=== PATIENT | female | born 1945 | race Caucasian/White ===

== ENCOUNTER 2024-07-10 15:11 | Emergency (ER) | payer MEDICARE, OTHER, SELFPAY ==
[2024-07-10 15:15] VITALS: BP 192/86; PULSE 63; RESP 18; TEMP 36.4; O2SAT 99; BMI 19.4
--- NOTE | 2024-07-10 15:24 | DI.RAD.S_ITS ---
PROCEDURE: XR TIBIA FUBULA RT 2V INDICATIONS: injury 07/01, swelling/bruised TECHNIQUE: 2 views of the tibia and fibula were acquired. COMPARISON: None. FINDINGS: Bones: No fractures or dislocations. No suspicious bony lesions. Soft tissues: Soft tissue swelling over anterior aspect of proximal tibial shaft is seen. No suspicious soft tissue calcifications or masses. IMPRESSION: No acute right lower leg fracture or dislocation. Soft tissue swelling over anterior aspect of proximal lower leg. Dictated by: Vitaly Mancuso M.D. on 07/10/2024 at 15:57 Approved by: Vitaly Mancuso M.D. on 07/10/2024 at 15:57
--- NOTE | 2024-07-10 15:26 | DI.US.S_ITS ---
PROCEDURE: US PERIPH VENOUS LOW EXTREM RT INDICATIONS: r/o dvt, recent injury/swelling/bruising TECHNIQUE: Real-time imaging, as well as color and pulse Doppler interrogation, were performed of the lower extremity deep veins from the inguinal ligament to the popliteal fossa, with documentation of the visualized calf veins. COMPARISON: None. FINDINGS: The common femoral, femoral, popliteal, and the visualized calf veins are normally compressible, and free of intraluminal thrombus. Color and pulse Doppler demonstrate normal phasic intraluminal flow. There is normal augmentation response to distal compression maneuver. Complex fluid collection is noted in anterior right lower leg soft tissue with through acoustic enhancement and low level internal echoes measures up to 6.5 x 1.5 x 3.4 cm in size. IMPRESSION: 1. No evidence of DVT in visualized right lower extremity veins. 2. Likely organizing hematoma in anterior right proximal lower leg soft tissue measures 6.5 x 1.5 x 3.4 cm in size. Dictated by: Vitaly Mancuso M.D. on 07/10/2024 at 16:53 Approved by: Vitaly Mancuso M.D. on 07/10/2024 at 16:55
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
== END 2024-07-10 18:36 | disposition home or self-care (01) ==
PROVIDERS: Emergency Provider Physician Assistant
DX: S80.11XA Contusion of right lower leg, initial encounter (principal); W23.1XXA Caught, crushed, jammed, or pinched between stationary objects, initial encounter; Y93.89 Activity, other specified; Y92.814 Boat as the place of occurrence of the external cause
CPT/HCPCS: 73590; 93971; 99281; 99283